=== PATIENT | male | born 1950 | race African-American/Black ===

== ENCOUNTER 2021-08-19 22:18 | Inpatient (IN) | payer MEDICAID ==
[~2021-08-19] VITALS: Ht 167.6 cm; Wt 68.0 kg
--- NOTE | 2021-08-19 22:20 | NUR ---
BIBRA 58 FROM 04/23, C/O SOB, O2 STAT BELOW 70 ON R/A% . A/OX2. AWAKE AND RESPONDING TO QUESTIONS. UPON TRIAGE ON NRB SATTING 88%
[2021-08-19] MEDS ORDERED: NTG 50 MG/D5W250 ML BOTTL 250 ML IV ONE ×2 (22:29→22:30)
[2021-08-19] MEDS ORDERED: ENALAPRILAT INJ (1.25 MG/ML) 1.25 MG/ML VIAL IV ONE (22:29)
[2021-08-19] MEDS ORDERED: FUROSEMIDE 40 MG/4 ML VIAL ONE (22:29)
[2021-08-19] MEDS ORDERED: FUROSEMIDE 40 MG/4 ML VIAL IV ONE (22:30)
[2021-08-19] MEDS ORDERED: ENALAPRILAT DIHYD. (2.5MG/2ML) 1.25 MG/ML VIAL IV ONE (22:30)
--- NOTE | 2021-08-19 22:40 | NUR ---
LAC #20G; S/L PATENT AND INTACT. BLOOD WORK DRAWN AND GIVEN TO LAB KOFI
--- NOTE | 2021-08-19 22:46 | NUR ---
Current Bipap settings: 15/5, Rate 14, Fio2 50% o2 sat 96%
--- NOTE | 2021-08-19 22:50 | NUR ---
R EMILY #20G S/L; PATENT AND INTACT
[2021-08-19 23:08] LABS: BASOPHILS % (AUTO) 0.6 % (0.0-2.0); EOSINOPHILS % (AUTO) 0.8 % (0.0-6.0); HEMATOCRIT 39 % (39-51); HEMOGLOBIN 12.3 g/dL (13.5-17.5); LYMPHOCYTES # (AUTO) 1.3 K/uL (0.8-4.8); LYMPHOCYTES % (AUTO) 18.1 % (20.0-44.0); MEAN CORPUSCULAR HGB CONC 31 g/dl (31.0-36.0); MEAN CORPUSCULAR VOLUME 92 fL (80-96); MONOCYTES # (AUTO) 0.6 K/uL (0.1-1.30); MONOCYTES % (AUTO) 8.5 % (2.0-12.0); NEUTROPHILS # (AUTO) 5.3 K/uL (1.8-8.9); PLATELET COUNT (AUTO) 221 K/uL (150-450); RED BLOOD CELL COUNT(AUTO) 4.27 MIL/uL (4.5-6.0); WHITE BLOOD COUNT (AUTO) 7.4 K/uL (4.3-11.0)
[2021-08-19] MEDS ORDERED: NTG 50 MG/D5W250 ML BOTTL 50 MG/250 ML BTL IV ONE (23:30)
[2021-08-19 23:31] LABS: CALCIUM, SERUM 8.5 mg/dL (8.5-10.1); CARBON DIOXIDE 24 mmol/L (21-32); CHLORIDE 107 mmol/L (98-107); CREATININE 1.9 mg/dL (0.6-1.3); GLUCOSE 95 mg/dL (74-106); POTASSIUM 4.9 mmol/L (3.5-5.1); SODIUM SERUM 140 mmol/L (136-145); UREA NITROGEN, BLOOD 37 mg/dL (7-18)
--- NOTE | 2021-08-19 23:40 | NUR ---
per MD order to titrate Nitro to 100mcg/min, bp 189/122 hr 90
[2021-08-19 23:45] LABS: ALANINE AMINOTRANSFERASE 112 U/L (12-78); ALBUMIN 3.2 g/dL (3.4-5.0); ALKALINE PHOSPHATASE 145 U/L (46-116); ASPARTATE AMINOTRANSFERASE 74 U/L (15-37); BILIRUBIN,DIRECT 0.3 mg/dL (0.0-0.2); BILIRUBIN,TOTAL 0.8 mg/dL (0.2-1.0); TOTAL PROTEIN, SERUM 6.7 g/dL (6.4-8.2)
[2021-08-19] MEDS ORDERED: ENOXAPARIN SODIUM 80 MG/0.8 ML DISP.SYRIN SQ ONE (23:52)
[2021-08-20] MEDS ORDERED: ENOXAPARIN SODIUM 60 MG/0.6 ML DISP.SYRIN SQ ONE
--- NOTE | 2021-08-20 | NUR ---
PT ON NITRO DRIP 200 MCG/MIN PER MD ORDER
--- NOTE | 2021-08-20 | NUR ---
Per md order to titrate nitro to 100 mcg/min current BP 196/103 RR 22 O2 SAT 97
--- NOTE | 2021-08-20 00:51 | NUR ---
EPIC PANEL PAGED.
--- NOTE | 2021-08-20 01:02 | NUR ---
ROOM: 256 ICU
--- NOTE | 2021-08-20 01:16 | NUR ---
bp 159/94 pulse 83, RR 14, O2 SAT 100%, PER DC NITRI DRIP.
[2021-08-20] MEDS ORDERED: BUMETANIDE INJ 2 MG in IV NS 0.9% 32 ML IV ONE (01:30)
[2021-08-20] MEDS ORDERED: ONDANSETRON HCL/PF 4 MG/2 ML VIAL IVP PRN (01:30)
[2021-08-20] MEDS ORDERED: ENALAPRILAT DIHYD. (2.5MG/2ML) 1.25 MG/ML VIAL IV ONE ×2 (01:30→01:34)
[2021-08-20] MEDS ORDERED: ACETAMINOPHEN 325 MG TABLET PO PRN (01:30)
[2021-08-20] MEDS ORDERED: MAGNESIUM HYDROXIDE 30 ML UDC PO PRN (01:30)
[2021-08-20] MEDS ORDERED: MAG HYDROX/AL HYDROX/SIMETH 30 ML UDC PO PRN (01:30)
[2021-08-20] MEDS ORDERED: Z GUARD REMEDY 2 OZ OINT TP PRN (01:30)
[2021-08-20] MEDS ORDERED: FUROSEMIDE 40 MG/4 ML VIAL IV ONE (01:30)
[2021-08-20] MEDS ORDERED: ZOLPIDEM TARTRATE 5 MG TABLET PO PRN (01:30)
--- NOTE | 2021-08-20 01:30 | NUR ---
RT REMOVED PT FROM BIPAT PT CURRENTL ON NC 2 L OF 02 SAT 96%
[2021-08-20] MEDS ORDERED: FUROSEMIDE 40 MG/4 ML VIAL ONE (01:33)
[2021-08-20 04:00] VITALS: BP 161/106
--- NOTE | 2021-08-20 04:17 | NUR ---
PT VOIDED 2,450 ML OF URINE
--- NOTE | 2021-08-20 04:18 | NUR ---
REPORT GIVEN TO JEROME HOLGUIN.
--- NOTE | 2021-08-20 04:22 | NUR ---
PT TRANSPORTED WITH ACLS PROTOCOL
[2021-08-20] MEDS ORDERED: BUMETANIDE INJ 0.25 MG/ML VIAL ONE (04:27)
--- NOTE | 2021-08-20 04:30 | NUR ---
RN ADMITTING NOTE RECEIVED PATIENT FROM ER VIA GURNEY ACCOMPANIED BY 2 ER STAFF AND TRANSFERRED TO BED VIA 2 PERSON ASSIST. PT IS CONFUSED, RESPIRATIONS EVEN AND UNLABORED, SATURATION AT 99% ON 2L VIA NC. COMPREHENSIVE PHYSICAL ASSESSMENT AND PATIENT CARE DONE. NOTED MULTIPLE SCABS AT THE BACK, PHOTO TAKEN AND PLACED IN CHART. PATIENT REFUSED SKIN ASSESSMENT OF THE REMAINDER OF HIS BODY. NOTED IV LINE AT R HAND 20G, AND L AC 20G, PATENT AND FLUSHING WELL, NO S/S OF INFECTION OR INFILTRATION NOTED. AGUILAR CATHETER CONNECTED TO URINE BAG IN PLACE. SAFETY MEASURES AND ISOLATION PRECAUTION IN PLACE, CALL LIGHT WITHIN REACH OF PATIENT, BED ON LOWEST POSITION, SIDE RAILS UP. WILL CONTINUE MONITOR AND ASSESS THROUGHOUT THE SHIFT. WILL CARRY OUT MD ORDERS ACCORDINGLY. HEAVY EQUIPMENT SERVICE MANAGER MADE AWARE.
--- NOTE | 2021-08-20 07:26 | NUR ---
TD RN AM NOTES RECEIVED PATIENT IN BED, AAOX 1-2, ON 2L O2 NASAL CANULA, NOT IN ANY DISTRESS, RESPIRATION UNLABORED. PATIENT IS VERBALLY INTIMIDATING. PERIOD OF CONFUSION, SINUS RHYTHM ON MONITOR. DENIES ANY DISCOMFORT/ PAIN. MULTIPLE SCABS AT THE BACK AND CONTINUES TO REFUSE SKIN ASSESSMENT. RT HAND G 20 AND LAC 20G FLUSHES WELL, BOTH SITED CLEAR. AGUILAR CATH IN PLACE, WITH CLEAR YELLOW URINE DRAINING TO GRAVITY. CARDIAC DIET, BED REST FOR NOW, SAFETY MEASURES AND ISOLATION PRECAUTION IN PLACE, CALL LIGHT WITHIN REACH OF PATIENT, BED ON LOWEST POSITION, SIDE RAILS UP. WILL CONTINUE MONITOR.
[2021-08-20 08:00] VITALS: BP 164/71
[2021-08-20] MEDS ORDERED: FUROSEMIDE 40 MG/4 ML VIAL IV SCH (09:00)
--- NOTE | 2021-08-20 09:00 | NUR ---
RN NOTES DR. WAKEFIELD AT BEDSIDE. DC THE LASIX HE JUST ORDERED
[2021-08-20] MEDS: NITROGLYCERIN 30 GM TUBE TP SCH ×3 (09:17→20:47)
[2021-08-20] MEDS: METOPROLOL TARTRATE 25 MG TABLET PO SCH ×2 (09:17→20:47)
--- NOTE | 2021-08-20 09:50 | NUR ---
RN NOTES PATIENT REFUSED BLOOD DRAW, DESPITE EXPLAINING THE NEED FOR IT TO BE DONE.
[2021-08-20] MEDS: FUROSEMIDE 40 MG/4 ML VIAL IV SCH ×3 (10:39→17:23)
[2021-08-20] MEDS: hydrALAZINE HCL 50 MG TABLET PO SCH ×3 (10:41→17:00)
[2021-08-20] MEDS: ENOXAPARIN SODIUM 40 MG/0.4 ML DISP.SYRIN SQ SCH (10:42)
[2021-08-20 12:00] VITALS: BP 121/80
--- NOTE | 2021-08-20 13:55 | NUR ---
RN NOTES DR. WAKEFIELD NOTIFIED ABOUT PATIENT REFUSED BLOOD DRAW FOR LABS, ULTRASOUND AND THREW THE MEDICATIONS AT US. PER MD, PSYCH CONSULT. WILL FAX FACESHEET TO [employer]
[2021-08-20 16:00] VITALS: BP 115/79
--- NOTE | 2021-08-20 18:33 | NUR ---
RN NOTES DR. PATTON NOTIFIED OF PSYCH CONSULT
--- NOTE | 2021-08-20 18:46 | NUR ---
TD RN CLOSING NOTES PATIENT IN BED, RESTING AAOX 1-2, ON 2L O2 NASAL CANULA, NOT IN ANY DISTRESS, RESPIRATION UNLABORED. PATIENT REMAINS VERBALLY INTIMIDATING. PERIOD OF CONFUSION, SINUS RHYTHM ON MONITOR. DENIES ANY DISCOMFORT/ PAIN. RT HAND G 20 AND LAC 20G FLUSHES WELL, BOTH SITES CLEAR. AGUILAR CATH IN PLACE, WITH CLEAR YELLOW URINE DRAINING TO GRAVITY TOTAL 3600 ML OUTPUT. CARDIAC DIET, BED REST FOR NOW, SAFETY MEASURES AND ISOLATION PRECAUTION IN PLACE, CALL LIGHT WITHIN REACH OF PATIENT, BED ON LOWEST POSITION, SIDE RAILS UP. ALL NEEDS MET. WILL ENDORSE TO NEXT SHIFT FOR ALINE. MD AWARE PATIENT REFUSED PM MEDICATIONS. NON COOPERATIVE.
--- NOTE | 2021-08-20 19:00 | NUR ---
RN NOTE RECEIVED PATIENT IN BED RESTING ALERT ORIENTED X1 VERBALLY RESPONSIVE ON 2L OXYGEN VIA NASAL CANNULA O2:98% IV SITE IS ON LEFT AC AND RIGHT HAND INTACT PATENT AGUILAR CATHETER IN PLACE URINE DRAINING YELLOW AND CLEAR BY GRAVITY,SAFETY MEASURE IMPLEMENT BED IN LOW POSITION AND LOCKED,BED ALARM IN PHOTOGRAPHIC DEVELOPER AND PRINTER LIGHT WITHIN REACH CONTINUE TO MONITOR.
[2021-08-20 20:00] VITALS: BP 121/74
--- NOTE | 2021-08-20 21:00 | NUR ---
RN NOTE PATIENT REFUSES TO TAKE MEDS METOPROLOL, AND NITROGLYCERIN ON 2100 PER MORNING SHIFT NURSE AWARE OF THAT CONTINUE TO MONITOR.
[2021-08-21] VITALS: BP 144/87
[2021-08-21 04:00] VITALS: BP 153/109
[2021-08-21] MEDS: NITROGLYCERIN 30 GM TUBE TP SCH ×3 (05:00→21:44)
--- NOTE | 2021-08-21 06:41 | NUR ---
RN NOTE PATIENT REMAINS ON ALERT ORIENTED X4 VERBALLY RESPONSIVE ON 2L OXYGEN VIA NASAL CANNULA,O2:98% HE REFUSED TO TAKE HIS MEDS HE REFUSED TO HAVE LAB DRAW,AGUILAR CATHETER IN PLACE URINE DRAINING YELLOW AND CLEAR,HE REFUSED TO BE CLEANED ENDORSE NEXT COMING SHIFT FOR CONTINUATION OF CAR Addendum: 08/21/21 at 0718 by BILL RUGGIERO RN PLS DISREGARD THIS NOTE
--- NOTE | 2021-08-21 07:18 | NUR ---
RN NOTE PATIENT REMAINS ON ALERT ORIENTED X1 VERBALLY RESPONSIVE ON 2L OXYGEN VIA NASAL CANNULA,O2:98% HE REFUSED TO TAKE HIS MEDS HE REFUSED TO HAVE LAB DRAW,AGUILAR CATHETER IN PLACE URINE DRAINING YELLOW AND CLEAR,HE REFUSED TO BE CLEANED ENDORSE NEXT COMING SHIFT FOR CONTINUATION OF CAR
--- NOTE | 2021-08-21 07:28 | NUR ---
RN NOTE PATIENT IS IN BED WITH HOB AT SEMI FOWLERS POSITION. PATIENT IS ON 2L NC WITH NO SIGNS OF LABORED BREATHING. PATIENT IS AOX1. AGUILAR CATH IS IN PLACE. BED IS LOCKED IN THE LOWEST POSITION, 3 GUARD RAILS RAISED, CALL SMART WITHIN REACH, AND ALL HOSPITAL SAFETY PRECAUTIONS ARE BEING FOLLOWED. WILL CONTINUE TO MONITOR THROUGHOUT SHIFT.
[2021-08-21] MEDS: hydrALAZINE HCL 50 MG TABLET PO SCH ×3 (08:35→16:24)
[2021-08-21] MEDS: ENOXAPARIN SODIUM 40 MG/0.4 ML DISP.SYRIN SQ SCH (08:35)
[2021-08-21] MEDS: METOPROLOL TARTRATE 25 MG TABLET PO SCH ×2 (08:35→21:43)
--- NOTE | 2021-08-21 08:42 | NUR ---
WOUND CARE CONSULT: REVIEWED CHART, NURSING DOCUMENTATION AND PHOTO WHICH INDICATES SCARS/SCABS TO BACK, PRESENT ON ADMISSION. RECOMMENDATIONS MADE FOR SKIN PROTECTION. DISCUSSED WITH NURSING STAFF. MD IN AGREEMENT WITH PLAN OF CARE.
--- NOTE | 2021-08-21 08:57 | NUR ---
SS consult requested for homelessness. SW will follow up at a later time.
[2021-08-21] MEDS: AMLODIPINE BESYLATE 10 MG TABLET PO SCH (09:00)
--- NOTE | 2021-08-21 09:31 | NUR ---
RN NOTE PATIENT REFUSING ALL AM MEDICATIONS WELL VITAL SIGNS. EDUCATED PATIENT ON IMPORTANCE. DR. WAKEFIELD AWARE.
[2021-08-21] MEDS ORDERED: LORAZEPAM 1 MG TABLET PO PRN (10:00)
[2021-08-21] MEDS ORDERED: HALOPERIDOL LACTATE INJ 5 MG/ML VIAL IM PRN (10:00)
[2021-08-21] MEDS: OLANZAPINE ZYDIS 5 MG TAB.RAPDIS PO SCH ×2 (10:00→16:24)
--- NOTE | 2021-08-21 12:23 | NUR ---
"SS consult : SS consult requested for homelessness. Pt. is a 71-year-old male who presented to the ED with hypoxic respiratory distress per EMR. Upon SS consult, pt. is A&O x2 and appears unkempt. Pt. was rambling with pressured speech and provided poor eye contact. Pt. presented with a dysphoric mood and affect. Pt. has a tangential thought process. SS consult explored pt. 's living situation. Pt stated he has been homeless for many years. SW provided homeless resources and pt. refused them . Pt. stated that he cannot read. SW explored pt.s social support. Pt. stated he had no friends or family. SW explored pt.s financial situation. SW was unable to comprehend pt.s speech. SW explored pt.s substance abuse hx. 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 SW explored pt.s psychiatric hx. SW was unable to comprehend pt.s speech. Pt. denied HI/SI. Plan: Pt. was unable to state where he wants to be discharged. SW provided homeless resources and pt. refused them. Pt. refused to sign homeless waiver and it was placed in the pt.s chart. Case management is working on possible placement. Per charge nurse, pt. was seen by Psychiatrist, Dr. Manriquez. Year-round shelters: [facility] [place] [address] [place] [address] ; [facility] [place] [address] [place] [address]; [facility] [id number] [facility] [address] Winter Shelters: Dany [place] Provider: [facility] [place] [facility] [place] Address: [address] [place] [address], [address] # of Beds: 47 Population Served: [facility] 6 | [facility] Linda Fritz M[place] Provider: [facility] Address: [address] [place] [address], [address] # of Beds: 66 Population Served: [facility] Spoonity M[place]on[place] Provider: [facility] Address: [id number] [place] [address], [address] # of Beds: 56 Population Served: [facility] [place] Provider: /[facility] Address: [address] [facility], [address] # of Beds: 49 Population Served: [facility] 8 | [facility] Provider: [facility] Address: [address] [place], [address] # of Beds: 37 Population Served: [facility] Hy[facility]: [facility]: [address] [place] ; [facility] [address] [facility] ; [facility] [address] [facility] . Food Resources: [place] [facility] at [facility]- [address] [facility]; Meet Each Need with Dignity ([facility]) [address] [facility]; [facility] [address] [facility]; [facility] [address] [facility]. Mental Health resources provided: [facility] [address] [place], [place] [address] ; [facility] [address] [facility] [address], [place], [place] [phone] ; [facility] Mental [facility] [address], [place] [phone] ; [facility] [address] [place], [place] [address] Healthcare Clinics: [facility] [address] [facility], [address] [place]. [place] ; [facility] [address] [facility] [address] [place] [address]; [facility] [address] [facility]. [place] [phone] Counseling--Outpatient [facility] [address] [facility], [place] [address] (Specializes in in-depth psychotherapy for emotional distress: anxiety, depression, interpersonal conflicts, life transitions, childhood abuse) [facility] [address] [place], [place] [address] (Assist with solving problem marital difficulties, separation & divorce, aging parents, & grief, chronic & terminal illness) [facility] [address] [place] [address] (Deal with loss & grief, anxiety, marital difficulties) Homebound/Mental Health Services [address] [facility] [address] [place], [place] [phone] (Provide in-home mental services to people who are incapable of leaving their homes) [facility] Elderly Senior Service/Resource Center [address] [place] [address] [facility] [address] [facility] [facility] [place] [address] PSYCHIATRIC OUTPATIENT SERVICES [facility] Partial Hospitalization and Intensive Outpatient Program (Managed Care and [place] Only)[address] [facility] [phone] [facility] Partial Hospitalization and Outpatient [id number] [facility] [address] [place], [place] [phone] [facility], [facility] [id number] [facility] [address] [place], [place] [phone] [facility] Partial Hospitalization and Outpatient I[address], [phone] Substance Abuse resources provided included: [facility] Substance Abuse Self-Helpline (SAS) ; CRI -HELP [address] Count Includes [facility]. [place] [phone] ; [facility] [address] [facility] [address] ; [facility] Rehabilitation Program [address] [facility] [address] ; [facility] [address] [facility] [phone] ; [facility] [address] [facility] [address] ; [facility] [address] [facility] [phone] ; [facility] Substance Abuse Helpline([facility] ; [facility] Family Counseling ; [facility] [place]; [facility]; [facility] [place]; [facility] [address]; [facility] [place]; [facility] [place]; [facility] [place]; [facility], [facility]. [place]; Alcoholics Anonymous -SFV; Bh-Cmni-Dnepjqs ; Marijuana Anonymous -SFV; Narcotics Anonymous www.na.org;"
--- NOTE | 2021-08-21 18:39 | NUR ---
RN NOTE PATIENT IS IN BED WITH HOB AT SEMI FOWLERS POSITION. PATIENT IS ON 2L NC WITH NO SIGNS OF LABORED BREATHING. PATIENT IS AOX1. AGUILAR CATH HAS BEEN REMOVED PER DR. WAKEFIELD. BED IS LOCKED IN THE LOWEST POSITION, 3 GUARD RAILS RAISED, CALL SMART WITHIN REACH, AND ALL HOSPITAL SAFETY PRECAUTIONS ARE BEING FOLLOWED. PATIENT REFUSED ALL MEDICATIONS. WILL ENDORSE TO DISPATCHER SERVICE RN.
[2021-08-21 20:00] VITALS: BP 153/109
--- NOTE | 2021-08-21 20:30 | NUR ---
RN NOTES, PATIENT REFUSING VITAL SINGS AT THIS TIME, PATIENT VERBALLY AGGRESSIVE WITH STAFF, REFUSING TELE BOX ALSO, INFORMED ANDONIAN WOODWORKING MACHINE OPERATOR AND HE REPLIED WITH NO ORDERS, HE DOES NOT WANT TO DC TELE ACUITY AND REPLIED THAT IF PATIENT WANTS TO LEAVE AGAINS MEDICAL ADVICE IS OK, IF HE DO NOT WANT TREATMENT AND IS NOT COMPLIANT WITH MEDICATIONS/TREATMENTS/CARE, WILL INFORM PATIENT.
--- NOTE | 2021-08-21 20:40 | NUR ---
RN NOTES, DISCUSSED WITH PATIENT THAT PER MD HE CAN LEAVE AMA IF NOT COMPLIANT, EXPLAINS RISKS AND BENEFITS OF MEDS/TREATMENT AND CARE, HE REFUSED TROPONIN LAB EARLIER AND DISCUSSING WITH HIM THE IMPORTANCE OF CHECKING TROPONIN, PATIENT FINALLY AGREED, CALLED LAB, WE CHECKED VS AND OK TO RECEIVED MEDICATIONS, WILL CONTINUE TO MONITOR CLOSELY, PATIENT CONTINUE ON TELE MONITOR.
--- NOTE | 2021-08-22 00:28 | NUR ---
RN NOTES, PATIENT TRANSFERRED TO 3W ROOM 312-2 IN STABLE CONDITION WITH ALL ACLS PROTOCOL IN PLACED, PATIENT ON 2LPM VIA NC, WITH OPTIMAL O2 SATURATION, ACCOMPANIED BY RN AND INPATIENT CARE MANAGER RN, REPORT GIVEN TO LETTY HOLGUIN.
--- NOTE | 2021-08-22 00:34 | NUR ---
RN NOTE RECEIVED PT FROM AGUILAR VIA PATEL TO RM.312-2. PT AWAKE/ALERT, VERBALLY RESPONSIVE, AGGRESSIVE, UNCOOPERATIVE. PT ON TELE MONITOR FROM AGUILAR, CURRENTLY READING SR, HR 76. AGUILAR TELE BOX DISCONNECTED AFTER TRANSFER AND PT TO HAVE 3W TELE MONITOR, BUT HE STRONGLY REFUSED, HE ALSO REFUSED V/S, HE PUSHED AWAY THE VITALS MACHINE, AND WAS CUSSING OUT. SPOKE CALMLY TO PT AND PROVIDED EXPLANATION, PT CONTINUES TO STRONGLY REFUSE AT THIS TIME. CN AWARE WE ARE UNABLE TO CONNECT OUR TELE MONITOR AT THIS TIME. PT IN NO ACUTE DISTRESS. WILL CONT TO MONITOR.
--- NOTE | 2021-08-22 01:00 | NUR ---
RN NOTE PT ON R-SIDE LYING POSITION, SLEEPING AT THIS TIME. NO DISTRESS NOTED.
--- NOTE | 2021-08-22 04:00 | NUR ---
RN NOTE PT REFUSES V/S AND CONT TO REFUSE TELE MONITOR.
[2021-08-22] MEDS: NITROGLYCERIN 30 GM TUBE TP SCH ×3 (05:00→20:45)
--- NOTE | 2021-08-22 06:01 | NUR ---
RN NOTE PT REFUSED NTG PATCH. ALSO ATTEMPTED TO CONNECT TO TELE, BUT PT CONTINUES TO REFUSE, GETTING VERBALLY AGGRESSIVE. UNABLE TO REDIRECT. NO ACUTE DISTRESS NOTED. WILL CONT TO MONITOR.
--- NOTE | 2021-08-22 06:44 | NUR ---
RN NOTE PT RESTING IN BED, EASILY AROUSABLE TO STIMULI. A/OX2. VERBAL, UNCOOPERATIVE, REFUSING MEDS. THIS A.M. PT LET DIRECTOR PRIVATE CLEAN/CHANGE HIS BED/SOILED LINENS. HE DENIES ANY PAIN/DISCOMFORT. NO DISTRESS NOTED. CONT'D FREQUENT VISUAL CHECK. SAFETY MEASURES MAINTAINED.
[2021-08-22 08:00] VITALS: BP 163/106
[2021-08-22] MEDS: AMLODIPINE BESYLATE 10 MG TABLET PO SCH (08:41)
[2021-08-22] MEDS: hydrALAZINE HCL 50 MG TABLET PO SCH ×3 (08:42→17:29)
[2021-08-22] MEDS: METOPROLOL TARTRATE 25 MG TABLET PO SCH ×2 (08:42→20:41)
[2021-08-22] MEDS: ENOXAPARIN SODIUM 40 MG/0.4 ML DISP.SYRIN SQ SCH ×3 (08:43→09:11)
[2021-08-22] MEDS: OLANZAPINE ZYDIS 5 MG TAB.RAPDIS PO SCH ×3 (08:48→17:29)
[2021-08-22] MEDS: CLONIDINE HCL 0.3 MG/24H PTWK 1 EA PATCH TD SCH ×3 (08:51→09:10)
--- NOTE | 2021-08-22 09:30 | NUR ---
HITTING OUT AT NURSE ON APPROACH WITH SOME OF HIS MEDS.REFUSED CATAPRES PATCH,AND ZYPREXA.
--- NOTE | 2021-08-22 11:19 | NUR ---
PT REFUSED CXR FOR THE FOURTH X, CHELSIE GILL.
--- NOTE | 2021-08-22 11:35 | NUR ---
NOW REFUSING CHEST X-RAY.
[2021-08-22] MEDS: MUPIROCIN OINT 2% 22 GM TUBE NS SCH ×2 (13:00→20:45)
--- NOTE | 2021-08-22 15:10 | NUR ---
refusing consecutive lab draws.aware md needs them.as well refusal of bactroban ointment.
--- NOTE | 2021-08-22 15:25 | NUR ---
refuses to use urinal,incontinent in bed,refusing to change wet shorts..unable to get urine @ this point for drug screen.
[2021-08-22 16:00] VITALS: BP 143/96
--- NOTE | 2021-08-22 17:30 | NUR ---
spoke to [facility] pharmacist who informed rn pt. positive for mrsa nares 0n 08/21,pharmacist requests rn start bactroban,pt. refusing med.
--- NOTE | 2021-08-22 18:00 | NUR ---
no change in status other than he did take joseph. meds.
--- NOTE | 2021-08-22 19:20 | NUR ---
RN NOTE PT RESTING IN BED, EASILY AROUSABLE TO STIMULI. A/OX2, VERBAL, EASILY ANGERED AND CUSSES OUT AT NURSES. HOWEVER, PT LET THE ROUNDING MACHINE OPERATOR CHECK HIS V/S. HE DENIES PAIN AT THIS TIME. RESPIRATIONS EVEN/UNLABORED. PT ON ROOM AIR AND LEONCIO WELL. IV SITE ON R-AC IN PLACE, BUT PT REFUSED ASSESSMENT/FLUSH. PT IN NO ACUTE DISTRESS. SAFETY MEASURES IN PLACE, BED IN LOWEST LOCKED POSITION, S/R UPX2, CALL LIGHT WITHIN REACH. WILL CONT TO MONITOR.
[2021-08-22 20:00] VITALS: BP 151/102
--- NOTE | 2021-08-22 20:45 | NUR ---
RN NOTE PT TOOK THE LOPRESSOR TAB, BUT STRONGLY REFUSED THE BACTROBAN OINT AND NTG PATCH, STRIKING OUT WITH PILLOW. WILL CONT TO MONITOR.
--- NOTE | 2021-08-22 22:39 | NUR ---
RN NOTE SPOKE TO PT RE CHANGING HIS WET/SOILED PANTS THAT HE WAS WEARING FOR DAYS AND ALREADY GIVING OFF A VERY STRONG SMELL, AND CHANGING THE SOILED BED LINENS. PT WAS STARTING TO STRIKE OUT AT PLASMA SPECIALIST AND GETTING VERBALLY AGGRESSIVE, SCREAMING/YELLING OUT. MOTOR VEHICLE OR CARAVAN SALESPERSON WAS CALLED AND WHEN HE CAME THE PT BECAME COMPLIANT AND ALLOWED THE PLASMA SPECIALIST TO CHANGE HIM AND GIVE HIM A BED BATH. AFTER WHICH, THE PT RESTED COMFORTABLY IN BED AND DOZED OFF TO SLEEP.
[2021-08-23] MEDS: NITROGLYCERIN 30 GM TUBE TP SCH ×3 (05:00→21:00)
--- NOTE | 2021-08-23 06:13 | NUR ---
RN NOTE PT USED URINAL AT THIS TIME. ABLE TO OBTAIN URINE SPECIMEN FOR DRUG SCREEN ORDERED. SENT TO LAB.
--- NOTE | 2021-08-23 06:37 | NUR ---
RN NOTE PT RESTING IN BED, EASILY AROUSABLE TO STIMULI. A/OX2. VERBAL. REFUSED AM MED NTG PATCH. HE DENIES ANY PAIN/DISCOMFORT. NO DISTRESS NOTED. SAFETY MEASURES MAINTAINED.
[2021-08-23] MEDS: hydrALAZINE HCL 50 MG TABLET PO SCH ×3 (09:00→17:23)
[2021-08-23] MEDS: MUPIROCIN OINT 2% 22 GM TUBE NS SCH ×2 (09:00→21:00)
[2021-08-23] MEDS: AMLODIPINE BESYLATE 10 MG TABLET PO SCH (09:00)
[2021-08-23] MEDS: METOPROLOL TARTRATE 25 MG TABLET PO SCH ×2 (09:00→21:00)
[2021-08-23] MEDS: ENOXAPARIN SODIUM 40 MG/0.4 ML DISP.SYRIN SQ SCH (09:00)
--- NOTE | 2021-08-23 09:22 | NUR ---
NO BP MEDS ATTEMPTED PT. REFUSED VS.ADDITIONALLY REFUSED OTHER MEDS.
[2021-08-23] MEDS: OLANZAPINE ZYDIS 5 MG TAB.RAPDIS PO SCH ×3 (09:24→17:24)
--- NOTE | 2021-08-23 12:46 | NUR ---
AGAIN REFUSING VITAL SIGNS AT THIS TIME,SO NOT ABLE TO GIVE BP MEDS.
--- NOTE | 2021-08-23 18:00 | NUR ---
TOOK DAVID. MEDS DUE TO HIGH BP.
--- NOTE | 2021-08-23 19:35 | NUR ---
MS RN NOTES RECEIV ED ON BED SLEEPING,AROUSABLE TO VERBAL STIMULI,NO SOB NOTED,O2 IN USED AT 2L/NC,O2 SAT 96%.A/O X1-2,SALINE LOCK RIGHT AC,LEFT HAND INTACT AND PATENT.CALL LIGHT IN REACH,NEEDS ANTICIPATED.
[2021-08-23 20:00] VITALS: BP 135/81
[2021-08-24] MEDS: NITROGLYCERIN 30 GM TUBE TP SCH ×2 (05:00→13:00)
--- NOTE | 2021-08-24 06:07 | NUR ---
Patient refusing to be touched hitting staff if they do not go away. Nitro cream tube not in casette or at bedside. will call pharmacy when open since non emergency due to patient currently refusing.
--- NOTE | 2021-08-24 07:30 | NUR ---
RN OPENING NOTES RECEIVED PATIENT IN BED WHILE SLEEPING. ALERT AND ORIENTED TIMES 2. EVEN AND UNLABORED BREATHS. nO SOB NOTED, NO RESPIRATORY DISTRESS NOTED. ON O2 INHALATION VIA NASAL CANNULA @ 2L/MIN. IV ON THE RIGHT HAND GAUGE #20 INTACT AND PATENT. NO SWELLING NO BLEEDING NOTED. NO PAIN, NO FACIAL GRIMACING NOTED. WILL CONTINUE TO MONITOR.
[2021-08-24] MEDS ORDERED: AMLO-213 PO (08:18)
[2021-08-24] MEDS ORDERED: OLAN5TAB6 PO (08:18)
[2021-08-24] MEDS ORDERED: HYDR-4077 PO (08:18)
[2021-08-24] MEDS ORDERED: FURO-145 PO (08:18)
[2021-08-24] MEDS ORDERED: METO25TA20 PO (08:18)
[2021-08-24] MEDS ORDERED: CLON0.3P TD (08:18)
[2021-08-24] MEDS: ENOXAPARIN SODIUM 40 MG/0.4 ML DISP.SYRIN SQ SCH (09:00)
[2021-08-24] MEDS: MUPIROCIN OINT 2% 22 GM TUBE NS SCH (09:00)
[2021-08-24] MEDS: OLANZAPINE ZYDIS 5 MG TAB.RAPDIS PO SCH ×3 (10:05→17:21)
[2021-08-24] MEDS: hydrALAZINE HCL 50 MG TABLET PO SCH ×3 (10:05→17:22)
[2021-08-24] MEDS: AMLODIPINE BESYLATE 10 MG TABLET PO SCH (10:06)
[2021-08-24] MEDS: METOPROLOL TARTRATE 25 MG TABLET PO SCH (10:06)
--- NOTE | 2021-08-24 11:40 | NUR ---
D/C Planning: CHRISTOPHER met with pt. bedside and provided homeless resources and instructions for salter placement at [facility][[address] [facility] [address]; [phone]]. Pt. is agreeable to plan. SW also provided bus pass and pt. accepted it. Pt. refused to sign homeless waiver again. CHRISTOPHER discussed DC plan with pt.'s nurse and charge nurse, Roque.
[2021-08-24 17:22] VITALS: BP 148/68
--- NOTE | 2021-08-24 18:05 | NUR ---
RN/NOTES PATIENT IS ALERT AND ORIENTED. PATIENT IS ON ROOM AIR. PATIENT IN NO APPARENT RESPIRATORY DISTRESS NOTED. NO COMPLAINED OF PAIN NOTED. SEEN AND EXAMINED BY MD WITH ORDERS MADE AND CARRIED OUT. ALL DUE MEDICATIONS WAS GIVEN. DISCHARGED INSTRUCTIONS WAS GIVEN AND PATIENT VERBALIZED UNDERSTANDING. PATIENT EAT 2 TRAY MEAL AND SENT 2 PUDDING, 2 PACK OF ORANGE JUICE, MILK AND ENSURE. PATIENT WAS GIVEN A TAP CARD. MANUFACTURING APPLICATIONS ENGINEER WAS EVALUATED THE PATIENT. PATIENT LEFT THE HOSPITAL IN MEDICALLY STABLE CONDITION. PATIENT IS A SELF CARE.
== END 2021-08-24 18:20 | disposition home or self-care (01) | DRG 133 ==
LOC: ER 22:24 → ICU 08-20 01:05 → TELE-TD 08-20 03:20 → TELE1 08-21 15:00 → TELE 08-22 00:22 → MED 08-22 10:08
PROVIDERS: ADMIT Internal Medicine; ATTEND Internal Medicine
PROC: 5A09357 Assistance with Respiratory Ventilation, Less than 24 Consecutive Hours, Continuous Positive Airway Pressure (ICD-10-PCS; principal; 2021-08-20)
DX: J96.01 Acute respiratory failure with hypoxia (principal); N17.0 Acute kidney failure with tubular necrosis; I21.A1 Myocardial infarction type 2; I50.21 Acute systolic (congestive) heart failure; I13.0 Hypertensive heart and chronic kidney disease with heart failure and stage 1 through stage 4 chronic kidney disease, or unspecified chronic kidney disease; I16.1 Hypertensive emergency; Z59.00 Homelessness unspecified; N18.9 Chronic kidney disease, unspecified; Z20.822 Contact with and (suspected) exposure to COVID-19; K76.1 Chronic passive congestion of liver; F29 Unspecified psychosis not due to a substance or known physiological condition; E11.22 Type 2 diabetes mellitus with diabetic chronic kidney disease; E11.65 Type 2 diabetes mellitus with hyperglycemia; F20.0 Paranoid schizophrenia; F19.10 Other psychoactive substance abuse, uncomplicated; Z87.891 Personal history of nicotine dependence
CPT/HCPCS: 36415; 71045-TC; 76770-TC; 80048-TC; 80076-TC; 83880; 84484-TC; 85025-TC; 85730-TC; 87081-TC; 97116-TC; 97530-TC; G0378; J1650; J1940; J3490; U0003

== ENCOUNTER 2021-08-24 21:21 | Emergency (ER) | payer MEDICAID ==
[~2021-08-24] VITALS: Ht 175.3 cm; Wt 72.6 kg
[~2021-08-24 21:21] MED LIST: AMLO-213 PO; CLON0.3P TD; FURO-145 PO; HYDR-4077 PO; METO25TA20 PO; OLAN5TAB6 PO
[2021-08-24 21:33] VITALS: BP 182/115
--- NOTE | 2021-08-24 21:40 | NUR ---
BIBS C/O "WANTING A BED TO STAY IN" WAS JUST DISCHARGED TODAY. PT ALERT AND ORIENTED X3. AMBULATORY WITH NON LABORED BREATHING.
--- NOTE | 2021-08-24 22:03 | NUR ---
CALLED TO PLACE IN BED, PT NOT IN WAITING ROOM.
--- NOTE | 2021-08-24 23:09 | NUR ---
CALLED PT'S NAME, NOT IN WAITING ROOM.
== END 2021-08-25 02:02 | disposition home or self-care (01) ==
LOC: ER 21:23
DX: Z53.21 Procedure and treatment not carried out due to patient leaving prior to being seen by health care provider (principal)